=== PATIENT | female | born 1950 | race Caucasian/White ===

== ENCOUNTER 2021-12-23 07:24 | Outpatient (CLI) | payer MEDICARE, OTHER, SELFPAY ==
--- NOTE | 2021-12-23 08:01 | ECG_ITS ---
Measurements Intervals [place] Rate: 56 P: 40 W[place]: 188 QRS: 46 QRSD: 88 T: 33 QT: 402 QTc: 388 Interpretive Statements SINUS BRADYCARDIA DELAYED PRECORDIAL R/S TRANSITION BORDERLINE ST-T WAVE ABNORMALITY- ANTEROLATERAL LEADS BORDERLINE ECG NO PREVIOUS ECG AVAILABLE FOR COMPARISON Electronically Signed On 12-23-2021 8:33:31 CDT by Tc Parks D.O.
[2021-12-23 08:07] LABS: Basophils Absolute Auto 0.1 K/mm3 (0.0-0.1); Basophils Percent Auto 0.8 % (0.2-1.2); Eosinophils Absolute Auto 0.4 K/mm3 (0-0.3); Eosinophils Percent Auto 4.4 % (0-4.4); Hematocrit 43.3 % (37.0-47.0); Hemoglobin 14.1 g/dL (12.0-15.0); Immature Granulocyte Absolute 0.02 K/mm3 (0.00-0.031); Immature Granulocyte Percent A 0.3 % (0-0.5); Lymphocytes Absolute Auto 2.99 K/mm3 (0.9-3.2); Lymphocytes Percent Auto 37.4 % (18.3-44.2); Mean Corpuscular HGB Conc 32.6 g/dl (32-36); Mean Corpuscular Volume 92.1 fl (80-100); Mean Platelet Volume 10.4 fl (7.4-10.4); Monocytes Absolute Auto 0.7 K/mm3 (0.1-0.6); Neutrophils Absolute Auto 3.9 K/mm3 (1.3-6.7); Neutrophils Percent Auto 48.1 % (45.5-73.1); Platelet Count Result 259 k/mm3 (150-375); Red Cell Distribution Width 13.9 % (11.5-14.5)
[2021-12-23 08:18] LABS: Appearance Urine Clear (Clear); Bilirubin Urine Negative (Negative); Color Urine Yellow (Yellow); Glucose Urine UA Negative (Negative); Ketones Urine Negative (Negative); Leukocyte Esterase Ur Negative LEU/UL (Negative); Nitrate Urine Negative (Negative); Protein Urine Negative (Negative); Specific Grav Ur >= 1.030 (1.001-1.035); Urobilinogen Urine 0.2 mg/dL (<2.0); pH Urine 5.5 (5.0-9.0)
[2021-12-23 08:19] LABS: Anion Gap 12 mmol/L (8-16); Blood Urea Nitrogen 24 mg/dL (7-17); Calcium 9.4 mg/dL (8.4-10.2); Carbon Dioxide 31 mmol/L (22-30); Chloride 98 mmol/L (98-107); Estimated Glomerular Filt Rate > 60; Glucose 116 mg/dL (65-110); Potassium 4.4 mmol/L (3.4-5.0); Sodium 141 mmol/L (137-145)
[2021-12-23 08:25] LABS: Prothrombin Time 12.9 Seconds (11.1-14.7)
[2021-12-23 08:26] LABS: Partial Thromboplastin Time 30.6 SECONDS (22.3-36.8)
[2021-12-23 08:40] LABS: Add Urine Microscopic? YES; Blood Urine Trace-Intact (Negative)
[2021-12-23 09:28] LABS: Bacteria Urine 1+ /hpf; Mucus Urine Rare /lpf; Squamous Epithelial Cell Urine Rare /hpf (Few)
== END 2021-12-23 07:25 | disposition home or self-care (01) ==
PROVIDERS: PCP Neurological Surgery; Visit Provider Neurological Surgery
DX: Z01.818 Encounter for other preprocedural examination (principal); R94.31 Abnormal electrocardiogram [ECG] [EKG]
CPT/HCPCS: 36415; 80048; 81001; 85025; 85610; 85730; 86850; 86900; 86901; 93005

== ENCOUNTER 2022-01-16 14:41 | Outpatient (CLI) | payer MEDICARE, OTHER, SELFPAY | END 2022-01-16 14:42 | disposition home or self-care (01) | LOC: ANHSURGERY 14:53 | PROVIDERS: Visit Provider Neurological Surgery | DX: M48.061 Spinal stenosis, lumbar region without neurogenic claudication (principal) | CPT/HCPCS: 36415; 86850; 86900; 86901 ==

== ENCOUNTER 2022-01-19 16:10 | Observation (INO) | payer MEDICARE, OTHER, SELFPAY ==
--- NOTE | 2022-01-15 14:33 | PC.NURSE ---
Report to the Outpatient Waiting Room, entrance under the green pavilion located off [facility], at time _0600 on date _01/18/22 . OR Time: __729 . Time changes happen often and if your time is changed the preop area will call you the afternoon before. - You and your visitor will be asked to self-screen and do not enter if you have any COVID symptoms. - Only one visitor and NO children visitors are allowed at this time. - The patient visitor is requested to leave or wait in car when not with patient due to restrictions. - A mask is required within the hospital. Patients may have clear liquids (water, carbonated beverages, clear teas, apple juice) until 3 hours prior to surgery with a maximum of 20 ounces. - No food from midnight until time of surgery - Infants may have breast milk until 4 hours before surgery, formula 6 hours prior to surgery. - Children will be allowed to drink immediately following surgery. If applicable, please bring a bottle or sippy cup to assist with drinking. Juice, water, soda, and popsicles are readily available. For infants on formula, please bring formula the day of surgery. Pacifiers are allowed. Take the following medications with a SIP of water the morning of surgery: NONE Medications to discontinue per physician ___NONE Date to take last dose Please no make-up, nail occitan, hairspray, perfume, deodorant, or body powder the day of surgery. No jewelry (including any body piercings) or valuables the day of surgery, leave them at home. Please take a shower or bath the night before, or the morning of, surgery with an antibacterial soap. Wear comfortable, loose fitting clothing. Children are encouraged to wear pajamas. - Jewelry must be removed prior to entering the operating room. Rings and piercings that are not removed may be cut off. - The hospital will not accept responsibility for valuables. - Please leave all valuables, including medications, at home the day of surgery. If you are going home after surgery, a licensed mobile lounge driver must drive you home. - NO public transportation without another adult. - We recommend that an adult stay with you for 24 hours following discharge. - We also recommend that you do not drive, make important decision, drink alcoholic beverages, or take any drugs that were not prescribed by your health care provider for at least 24 hours after your discharge time. For Pediatric surgeries, we recommend two adults accompany the child home (only one inside the building at this time). Follow any additional instructions given to you from your surgeon. If you or anyone in your household have experienced Covid symptoms in the past week, please notify your surgeon or the nurse liaison at the phone number below for possible testing. Telephone instructions given to __PATIENT and asked if any additional questions and then verbalized understanding. Patient advised to call surgeon office or pre surgery nurse liaison [phone] if any additional questions.
[2022-01-15 14:43] VITALS: BMI 30.2
--- NOTE | 2022-01-17 13:19 | WPDANESEPPF ---
Anes - Initial Pre Proc Eval Procedure: Operation Date: 01/18/22 07:30 Proposed Procedures p Posterior Lumbar Decompression with Fusion L5-S1, Extension of Fusion L4-S1 - Tori Hernandez MD Date/Time: 01/17/22 13:19 Surgeon: Tori Hernandez MD Pre Op Diagnosis: lumbar stenosis Patient Data Age: 71 Gender: F Height: 1.57 m Weight: 74.85 kg Allergies Allergy/AdvReac Type Severity Reaction Status Date / Time No Known Allergies Allergy Verified 01/18/22 06:52 Home Medications Medication Instructions Recorded Confirmed Type atorvastatin 20 mg tablet 20 mg PO DAILY 10/27/21 01/18/22 History benazepril 10 mg tablet (Lotensin) 10 mg PO DAILY 10/27/21 01/18/22 History tramadol 50 mg tablet 50 mg PO Q6H PRN pain #20 tabs 01/05/22 01/18/22 Rx acetaminophen 500 mg tablet 1,000 mg PO Q6H PRN Pain 01/15/22 01/18/22 History pantoprazole 20 mg tablet,delayed 20 mg PO DAILY 01/15/22 01/18/22 History release ECG: Date of Service: 12/23/21 Procedure(s): CA 12 lead EKG Accession Number(s): [id number] cc: ~ ? Measurements Intervals? [place]? Rate: ? 56 ? P:? 40 [place]: ? 188? QRS:? 46 QRSD: ? 88 ? T:? 33 QT: ? 402? QTc:? 388? Interpretive Statements SINUS BRADYCARDIA DELAYED PRECORDIAL R/S TRANSITION BORDERLINE ST-T WAVE ABNORMALITY- ANTEROLATERAL LEADS BORDERLINE ECG NO PREVIOUS ECG AVAILABLE FOR COMPARISON Electronically Signed On 12-23-2021 8:33:31 CDT by Tc Parks D.O. Patient hx anesthesia problems: none Family hx anesthesia problems: none Results Review: All pre-operative results and documents have been reviewed as part of the pre-operative evaluation. [facility] Past Medical History Medical History Fusion of lumbar spine GERD (gastroesophageal reflux disease) Hypercholesteremia Hypertension Surgical History Surgical History H/O lumpectomy History of bunionectomy Family History Family History Father Family history of alcoholism Other Dementia Family history of cardiovascular disease Family history of malignant neoplasm Heart disease Hypertension Lung cancer Social History Social History Smoking status: Never smoker Alcohol intake: current Substance use: never Substance use type: does not use Living arrangements: with family Spiritual care concerns: No Anes - Eval Final PreProcedure Day of Procedure 01/17/22 13:19 Patient weight: obese Heart: regular rate and rhythm Lungs: clear to auscultation and normal air movement Airway: Mallampati scale class II Neurological: alert and oriented Last oral intake: >/= 8 hours ASA classification: III Emergent: no Anesthetic plan: proceed Anesthesia type and monitoring: general ETT Results Review: All pre-operative results and documents have been reviewed as part of the pre-operative evaluation. Informed Consent: The patient's anesthetic plan and its attendant risks and benefits were discussed with the patient/family/POA. Questions were solicited and answers provided to the satisfaction of the patient/family/POA.
[2022-01-18] VITALS (14 sets, daily range): BP systolic 100–163; BP diastolic 41–78; PULSE 51–71; RESP 12–20; TEMP 36.4–36.7; O2SAT 95–100
[2022-01-18] MEDS: LACTATED RINGERS 1,000 ML 30 ML IV CONT ×2 (07:20→10:30)
--- NOTE | 2022-01-18 07:30 | WPDHPUPDATE1 ---
History and Physical Update Update Date/Time: 01/18/22 07:30 History and Physical has been reviewed, including an updated exam of the patient. There are NO changes in the patient's condition. Risks, benefits, and alternatives have been discussed and questions answered. Patient agrees to proceed with procedure. Plan is for lumbar decompression at L5-S1 with extension of fusion L4-S1
[2022-01-18] MEDS: ceFAZolin 2 GM/D5W 50 ML 2 GM/50 ML BAG IVPB (07:39)
[2022-01-18] MEDS: LIDO 1%/EPINEPHRINE 1:100,000 10 ML VIAL 17 ML INFILTRATE (08:39)
--- NOTE | 2022-01-18 10:06 | W.PM.PROC2 ---
Procedure Note - Detailed Date of Procedure 01/18/22 Pre-op Diagnosis lumbar stenosis Post-op Diagnosis Same Procedure Performed Posterior lumbar decompression and instrumented fusion, decompression L5-S1 and posterolateral instrumented fusion L4-S1 Surgeon Tori Hernandez MD [facility] Jonh kim Anesthesia General Indications Chanel Schaffer? is a very pleasant 71-year-old female who presents with signs and symptoms of bilateral claudicatory lower extremity pain that fits best with an L5 and S1 radiculitis in the setting of lumbar stenosis at L5-S1 adjacent to her prior PLIF at L4-5 on imaging.? At our initial July visit Gautam noted primarily right-sided pain.? At today's visit she notes that her pain has shifted somewhat from the right to the left and has become much more bothersome.? She has tried treatments include [id number] medications as well as a formal course of physical therapy.? She also has had an SCOTT targeting L5-S1 without significant relief of her pain.? While initially, the most concerning symptom into the patient was not so much their symptoms are significantly limiting but that, given her prior surgery, she wanted to be relatively aggressive in terms of management, at today's visit, her symtpoms have persisted despite non surgical measures and she is much more inclined to pursue surgery. ?Dennise I have had an extended discussion in the office today regarding the options for management of her clinical symptoms and radiographic findings.? We have discussed the option of additional physical therapy or repeated interventional pain management strategies including SCOTT.? As she has not seen relief from these over the past four months, we have discussed that the likelihood that repeated attempts would offer a different result is small.. ? Finally we? discussed the option of surgery.? In the absence of functional deficit I have explained that my preference is to exhaust nonsurgical options prior to consideration of surgery.? I have emphasized that it is always my strong preference to ? Exhaust nonsurgical measures prior to consideration of surgery.? In this particular case, however, with stenosis adjacent to the patient's prior fusion correlate of symptoms, and as the patient has not responded to nonsurgical interventions, we have discussed that it would be entirely reasonable to consider surgery.? In his particular case we have discussed that surgery would involve a lumbar decompression at L5-S1 with an adjunctive instrumented photo posterolateral fusion, extending the patient's fusion from L4-S1 ?we have discussed the risks of surgery including but not limited to bleeding infection CSF leak numbness weakness paralysis stroke coma even .? We have discussed the risk of pseudoarthrosis and hardware failure as well as the possible need for additional surgery.? We have discussed the typical recovery from surgery.? Chanel expresses understanding and is inclined to pursue surgery Description of Procedure The patient was brought into the operating room.? She was intubated in a supine position by Anesthesia.? All monitoring and access was obtained.? The patient was turned into a prone position on the Lamonte table.? Again all extremities were padded.? Intraoperative monitoring was established. The patient was turned over to the surgical team.? The L4-L5 and S1 levels were confirmed with intraoperative fluoroscopy.? The patient's back was prepped and draped in a sterile fashion.? Final time-out was performed.? The patient's prior incision was opened and extended using a 10. Blade scalpel.? Dissection was carried down to the level of the spinous processes of L5 and S1.? The L3 and L5 spinous processes were identified.? The defects from the prior prior L4-5 decompressions were identified.? Dissection was carried down using Bovie electric cautery.? The lamina of L3 was identified bilaterally and taken out to the level of the L3-4 joint.? The pedicle screw
[2022-01-18] MEDS: fentaNYL CITRATE INJ (*CRX) 100 MCG/2 ML VIAL 25 MCG IV PUSH ×8 (10:45→11:42)
--- NOTE | 2022-01-18 12:27 | ADMGEN ---
This patient, Chanel Wagner, was admitted to Medical Room 249-01. Patient/family oriented to hospital policies and general routines including ID bracelet, bed and alarms, visiting hours, pain management, procedures, bathroom and other care routines, personal items, smoking policy, room service/diet, and visiting hours. Information on how to activate the Rapid Response Team has been discussed. Patient/Family are encouraged to report perceived risks to care and to ask questions if they do not understand what they are told or what they should do.
[2022-01-18] MEDS: HYDROmorphone HCL INJ (*CRX) 1 MG/ML SYR 0.5 MG IV PUSH (12:57)
[2022-01-18] MEDS: KCL 20 MEQ/D5/0.45% SOD CHL 1,000 ML 100 ML IV CONT (12:57)
[2022-01-18] MEDS: oxyCODONE/ACETAMINOPHEN (*CRX) 10-325 MG TABLET 1 TAB PO ×2 (14:29→18:46)
[2022-01-18] MEDS: DOCUSATE SODIUM 100 MG CAPSULE PO (20:49)
--- NOTE | ~2022-01-19 | XR_ITS ---
XR fluoroscopy no charge 01/18/2022 09:44 Lumbar fusion TECHNIQUE: Fluoroscopy used during lumbar fusion procedure performed by [Tori Hernandez MD] on 01/18/2022. 8 seconds of fluoroscopy with 1 images captured. ] FINDINGS: Correlate with procedure note. IMPRESSION: Fluoroscopy used during lumbar fusion procedure. Reviewed, dictated and finalized at location B.
[2022-01-19 00:51] VITALS: BP 132/48; PULSE 67; RESP 18; TEMP 36.2; O2SAT 98
[2022-01-19] MEDS: oxyCODONE/ACETAMINOPHEN (*CRX) 10-325 MG TABLET 1 TAB PO ×4 (02:23→20:50)
[2022-01-19 04:23] VITALS: BP 137/55; PULSE 61; RESP 20; TEMP 36.4; O2SAT 99
[2022-01-19] MEDS: KCL 20 MEQ/D5/0.45% SOD CHL 1,000 ML 100 ML IV CONT ×2 (07:44→22:45)
[2022-01-19] MEDS: CYCLOBENZAPRINE HCL 10 MG TABLET PO ×3 (07:45→22:45)
[2022-01-19] MEDS: ATORVASTATIN 20 MG TABLET PO (07:45)
[2022-01-19] MEDS: DOCUSATE SODIUM 100 MG CAPSULE PO ×2 (07:45→20:50)
[2022-01-19] MEDS: PANTOPRAZOLE SOD SESQUIHYDRATE 20 MG TAB PO (07:45)
[2022-01-19] MEDS: lisinopriL 20 MG TABLET PO (07:45)
--- NOTE | 2022-01-19 09:57 | PCPTNOTE ---
Patient refused treatment this session due to joint pain. RN aware.
[2022-01-19 10:00] VITALS: BP 138/58; PULSE 64; RESP 20; TEMP 36.7; O2SAT 100
--- NOTE | 2022-01-19 10:21 | WPDANESPN ---
Anes - Prog Note Post-Op Date/Time: 01/19/22 10:21 Cardiovascular status: normal Respiratory status: normal Airway patency: baseline Mental status: baseline Post-Op hydration status: normal Vital Signs: Last Vital Signs Temp 36.4 C 01/19/22 04:23 Pulse 61 01/19/22 04:23 Resp 20 01/19/22 04:23 BP 137/55 L 01/19/22 04:23 Pulse Ox 99 01/19/22 04:23 O2 Del Method Room Air 01/19/22 07:50 O2 Flow Rate 01/18/22 11:00 Pain Score (VAS): 06/01 I/O: Intake & Output 01/18/22 01/19/22 01/19/22 23:59 07:59 15:59 Intake Total 1801 240 240 Output Total 1505 870 Balance 296 -630 240 Post-procedural complaints: none Patient Feedback: Patient satisfied with anesthetic care.
[2022-01-19] MEDS: diazePAM (*CRX) 5 MG TABLET PO (11:34)
--- NOTE | 2022-01-19 12:57 | WPDNEUROSGPN ---
Progress Note: A&P Assessment and Plan (1) Lumbar stenosis: Code(s): M48.061 - Spinal stenosis, lumbar region without neurogenic claudication Status: Acute Plan Chanel Wagner is a very pleassant 71 year old female on POD1 from lumbar decompression and fusion L5-S1 Pain control with percocet Emphasized importance of muscle relaxant Will give Valium x 1 and see if with this patinet can work with PT/OT IF able to mobile well, anticipate d/c to home later today Follow up in office in 2 weeks for staple removal. Subjective Date/time seen: 01/19/22 12:57 Review of Systems Review of Systems: Chanel Wagner is status post lumbar decompression and fusion at L5-S1 with extension of fusion L4-S1. She was doing very well overnight was ambulating well in the halls on postoperative day 0. Overnight she noted some muscle spasms and subsequently had radiation of pain into her lower extremities. Those symptoms are improved after administration of Flexeril. The patient's incisional back pain is controlled Exam Narrative: AWake, alert, oriented x 3 Speech CF ROLAND EOMI Face= TML MAEW with 5/5 strength Able to stand and maneuver under her own power without pain Dressing CDI Objective Data Vital Signs Vital Signs: Vital Signs - 24 hr 01/18/22 13:10 01/18/22 14:10 01/18/22 16:02 Temperature 97.6 F 97.6 F Pulse Rate 60 61 Respiratory Rate 14 14 Blood Pressure 147/52 H 138/56 L Pulse Oximetry 99 99 Oxygen Delivery Room Air 01/18/22 18:00 01/18/22 20:27 01/18/22 20:49 Temperature 97.7 F 97.7 F Pulse Rate 63 65 Respiratory Rate 15 20 Blood Pressure 138/62 154/52 H Pulse Oximetry 99 97 Oxygen Delivery Room Air 01/19/22 00:51 01/19/22 04:23 01/19/22 07:50 Temperature 97.2 F L 97.6 F Pulse Rate 67 61 Respiratory Rate 18 20 Blood Pressure 132/48 L 137/55 L Pulse Oximetry 98 99 Oxygen Delivery Room Air 01/19/22 10:00 Temperature 98.0 F Pulse Rate 64 Respiratory Rate 20 Blood Pressure 138/58 L Pulse Oximetry 100 Oxygen Delivery Intake/Output Intake/Output: Intake & Output 01/16/22 01/17/22 01/18/22 09/30/22 23:59 23:59 23:59 23:59 Intake Total 3351 600 Output Total 9888 870 Balance 1661 -956 Meds/Results Medications: Active Medications Generic Name Dose Route Start Last Admin Trade Name Freq PRN Reason Stop Dose Admin Al Hydrox/Mg Hydrox/Simethicone 20 ml 01/18/22 12:07 Mag Hydrox/Al Hydrox/Simeth 30 Ml Udc PO Q4H PRN Indigestion/Heartburn Atorvastatin Calcium 20 mg 01/19/22 09:00 01/19/22 07:45 Atorvastatin 20 Mg Tablet PO 20 mg DAILY HAMIDA Administration Bisacodyl 10 mg 01/18/22 12:07 Bisacodyl 10 Mg Suppository RECTAL DAILY PRN Constipation Cyclobenzaprine HCl 10 mg 01/18/22 12:07 01/19/22 07:45 Cyclobenzaprine Hcl 10 Mg Tablet PO 10 mg TID PRN Administration Muscle Spasms Docusate Sodium 100 mg 01/18/22 21:00 01/19/22 07:45 Docusate Sodium 100 Mg Capsule PO 100 mg Q12HR HAMIDA Administration Hydromorphone HCl 0.5 mg 01/18/22 12:07 01/18/22 12:57 Hydromorphone Hcl Inj (*Crx) 1 Mg/Ml Syr IV PUSH 0.5 mg Q2H PRN Administration Pain Rated 7-10 Cefazolin Sodium 1 gm in 50 mls @ 100 mls/hr 01/18/22 14:00 01/19/22 06:17 Ancef 1 Gm/D5w 50 Ml Pm IVPB Infused Q8H HAMIDA Infusion Potassium Chloride/Dextrose/Sod Cl 1,000 mls @ 100 mls/hr 01/18/22 12:07 01/19/22 07:44 Kcl 20 Meq/D5/0.45% Sod Chl IV CONT 100 mls/hr .Q10H HAMIDA Administration Lisinopril 20 mg 01/19/22 09:00 01/19/22 07:45 Lisinopril 20 Mg Tablet PO 02/18/22 08:59 20 mg DAILY HAMIDA Administration Ondansetron HCl 4 mg 01/18/22 12:07 Ondansetron Inj 4 Mg/2 Ml Vial IV PUSH Q8H PRN Nausea And Vomiting Oxycodone/Acetaminophen 1 tablet 01/18/22 12:07 Oxycodone/Acetaminophen (*Crx) 5-325 Mg Tablet PO Q4H PRN Mild Pain (1-3) Oxycodone/Acetaminophen 1 tab
[2022-01-19 14:00] VITALS: BP 120/60; PULSE 72; RESP 18; TEMP 37.2; O2SAT 99
[2022-01-19 18:00] VITALS: BP 128/62; PULSE 70; RESP 18; TEMP 36.5; O2SAT 100
[2022-01-19 20:51] VITALS: BP 136/54; PULSE 76; RESP 16; TEMP 37.1; O2SAT 97
[2022-01-20 00:46] VITALS: BP 126/51; PULSE 84; RESP 20; TEMP 36.9; O2SAT 92
[2022-01-20] MEDS: oxyCODONE/ACETAMINOPHEN (*CRX) 10-325 MG TABLET 1 TAB PO ×2 (01:22→09:52)
[2022-01-20 05:22] VITALS: BP 148/62; PULSE 99; RESP 16; TEMP 37.2; O2SAT 93
[2022-01-20] MEDS: PANTOPRAZOLE SOD SESQUIHYDRATE 20 MG TAB PO (08:47)
[2022-01-20] MEDS: ATORVASTATIN 20 MG TABLET PO (08:47)
[2022-01-20] MEDS: lisinopriL 20 MG TABLET PO (08:47)
[2022-01-20] MEDS: DOCUSATE SODIUM 100 MG CAPSULE PO (08:47)
[2022-01-20 10:15] VITALS: BP 128/56; PULSE 95; RESP 18; TEMP 37.3; O2SAT 92
--- NOTE | 2022-02-09 16:43 | PM.DS ---
DS: Admitting Diagnosis Discharge Date 01/20/22 Admitting Diagnosis lumbar spondylosis DS: Discharge Diagnosis Discharge Diagnosis Plan PAtient admitted to hospital for elective lumbar decompression and fusion. Surgery performed without issue. Patient felt to be stable for discharge to home on POD#2 DS: Summary Hospital Course Hospital Course: Patient admitted for elective surgery. No postoperative complications. Stable for d/c on POD#2 Time Spent with Patient Time attestation: Total time spent providing and/or coordinating discharge services: Discharge Plan Discharge Consulting providers: Tra Burgos Discharging Clinician: Tori Hernandez Patient Disposition: Home, Self-Care Activity: as tolerated Diet: regular Wound Care Instructions: other - see discharge instructions Discharge Instructions: Day 2 incision open to air. Gauze and tape is OK if clothing rubs incision. Stand Alone Forms: General Discharge Instructions Follow-up/Referrals: Tori Hernandez MD [Physician] - 2 Weeks (for staple removal) Discharge Medications: Continued atorvastatin 20 mg tablet 20 mg PO DAILY benazepril [Lotensin] 10 mg tablet 20 mg PO DAILY Label Comments: TAKES 20 MG IN AM pantoprazole 20 mg tablet,delayed release (DR/EC) 20 mg PO DAILY acetaminophen 500 mg Tablet 1,000 mg PO Q6H PRN (Reason: Pain) Discontinued tramadol 50 mg tablet 50 mg PO Q6H PRN (Reason: pain) Qty: 20 0RF No Action cyclobenzaprine 10 mg tablet 10 mg PO TID PRN (Reason: muscle spasm) Qty: 30 0RF hydrocodone-acetaminophen 5-325 mg tablet 1 tablet PO Q6H PRN (Reason: pain) Qty: 42 0RF Date of admission: 01/19/22 16:10 Primary Care Provider: PHYSICIAN NOT ON STAFF,NONSTAFF Admitting Provider: Tori Hernandez Attending physician on admission: Tori Hernandez Condition: Stable
== END 2022-01-20 11:53 | disposition home or self-care (01) ==
LOC: ANHSURGERY 16:35 → ANH2MED 16:35
PROVIDERS: Admitting Provider Neurological Surgery; Visit Provider Neurological Surgery
PROC: (CPT 22612; principal; 2022-01-18 07:30)
DX: M48.061 Spinal stenosis, lumbar region without neurogenic claudication (principal); I10 Essential (primary) hypertension; K21.9 Gastro-esophageal reflux disease without esophagitis; E78.00 Pure hypercholesterolemia, unspecified; Z98.1 Arthrodesis status; E66.9 Obesity, unspecified; Z68.29 Body mass index [BMI] 29.0-29.9, adult
CPT/HCPCS: 22612; 22614; 22842; 20936; 63047; 36415; 80048; 81001; 85025; 85610; 85730; 86850; 86900; 86901; 93005; 97110; 97161; 97165; 97530; 97535; 99199; A9270; C9290; G0378; J0330; J0690; J1100; J1170; J2405; J2704; J3010; J3370; J3480; J7030; J7120

== ENCOUNTER 2022-05-11 10:40 | Outpatient (CLI) | payer MEDICARE, OTHER, SELFPAY ==
--- NOTE | ~2022-05-11 | XR_ITS ---
Lumbosacral Spine: AP and lateral views Clinical History: Pain, postoperative Findings: There is posterior fusion hardware extending from L4 through S1, with bilateral rods and tr anspedicular screws present. This fusion device present at the L4-L5 disc space. Minimal grade 1 ante rolisthesis of L4 over L5 noted. There is moderate to advanced degenerative disc narrowing at L2-L3 a nd L3-L4. The sacroiliac joints are normally outlined. Impression: Posterior fusion from L4 through S1, as detailed above. Minimal grade 1 anterolisthesis of L4 over L5. Degenerative disc disease in the lumbar spine, as detailed above. Reviewed, dictated and finalized at location M. [employer] Impression: Posterior fusion from L4 through S1, as detailed above. Minimal grade 1 anterolisthesis of L4 over L5. Degenerative disc disease in the lumbar spine, as detailed above.
== END 2022-05-11 10:41 | disposition home or self-care (01) ==
PROVIDERS: Visit Provider Neurological Surgery
DX: M51.36 Other intervertebral disc degeneration, lumbar region (principal)
CPT/HCPCS: 72100

== ENCOUNTER 2022-08-06 17:15 | Outpatient (CLI) | payer MEDICARE, OTHER, SELFPAY ==
--- NOTE | ~2022-08-06 | XR_ITS ---
XR lumbar spine 2-3V 08/06/2022 17:34 Indication: Post surgery follow-up Procedure: 3 views lumbar spine Comparison: Lumbar spine series dated 05/11/2022 Findings: Status post posterior spinal fusion at L4-S1 with prosthetic disc device at L4-5. Pedicle s crews appear to be intact. There is disc narrowing at all lumbar levels. No acute fracture or traumat ic malalignment. There is atherosclerosis of the aorta. There is moderate upper lumbar spondylosis. Impression: 1: Stable appearance to the lumbar spine status post posterior spinal fusion at L4-S1. 2: Moderate lumbar spondylosis. Reviewed, dictated and finalized at location A. Impression: 1: Stable appearance to the lumbar spine status post posterior spinal fusion at L4-S1. 2: Moderate lumbar spondylosis.
== END 2022-08-06 17:16 | disposition home or self-care (01) ==
LOC: ANHIMG 17:19
PROVIDERS: PCP Internal Medicine; Visit Provider Neurological Surgery
DX: M48.061 Spinal stenosis, lumbar region without neurogenic claudication (principal); Z98.1 Arthrodesis status; M43.06 Spondylolysis, lumbar region
CPT/HCPCS: 72100

== ENCOUNTER 2023-02-05 16:16 | Outpatient (CLI) | payer MEDICARE, OTHER, SELFPAY ==
--- NOTE | ~2023-02-05 | XR_ITS ---
XR lumbar spine 2-3V DATE: 02/05/2023 16:38 INDICATION: Surgical fusion TECHNIQUE: AP, lateral, coned lateral lumbosacral views COMPARISON: August 06, 2022 lumbar spine FINDINGS: Status post posterior surgical fusion by pedicle screws and rods at L4-S1 and interbody spi nal fusion at L4-5. The hardware appears intact without fracture or displacement. Severe degenerative disc disease at T11-12 including prominent vacuum phenomenon and eburnation. Mode rately severe degenerative disease at T12-L1. Mild to moderate degenerative disc disease at L1-2. Severe degenerative disc disease at L2-3 and L3-4. Moderately severe degenerative disc disease at L5-S1. There is calcification of the abdominal aorta and iliac arteries; no abdominal aortic aneurysm is vis ualized. IMPRESSION: Status post posterior surgical fusion at L4-S1 and interbody spinal fusion at L4-5 Multilevel degenerative disc disease Reviewed, dictated and finalized at location A.
== END 2023-02-05 16:17 | disposition home or self-care (01) ==
PROVIDERS: PCP Internal Medicine; Visit Provider Neurological Surgery
DX: Z98.890 Other specified postprocedural states (principal); Z98.1 Arthrodesis status; M51.36 Other intervertebral disc degeneration, lumbar region
CPT/HCPCS: 72100